=== PATIENT | female | born 1985 | race Caucasian/White ===

== ENCOUNTER 2023-07-31 08:47 | Emergency (ER) | payer SELFPAY ==
[2023-07-31 08:52] VITALS: BP 121/97; PULSE 100; RESP 18; TEMP 36.4; O2SAT 100; BMI 28.8
--- NOTE | 2023-07-31 09:14 | ED_ITS ---
HPI - Skin/Abscess/Foreign Bdy General Chief complaint: Skin/Abscess/Foreign Body Stated complaint: rectal pain Time Seen by Provider: 07/31/23 08:51 Source: patient Mode of arrival: walk-in Limitations: no limitations History of Present Illness HPI narrative: [age] year old female presents for rash and itching between her buttock cheeks. She's had this for several days and there is been some clear drainage. She hasn't had any unusual activity and hasn't been sweating anymore than typical. No vaginal drainage and no bleeding from this area. She has not been constipated. She hasn't felt any lumps. Related Data Previous Rx's Medication Instructions Recorded clotrimazole-betamethasone 1 1 applic topical BID #45 grams 07/31/23 %-0.05 % topical cream Allergies Allergy/AdvReac Type Severity Reaction Status Date / Time No Known Drug Allergies Allergy Verified 07/31/23 08:52 Review of Systems ROS Narrative A ten point review of systems is negative except as noted above. PFSH PFSH Social History Smoking status: Never smoker Exam Narrative Exam Narrative: Nurses note and vital signs reviewed and patient is not hypoxic. General: The patient appears well and in no apparent distress. Patient is resting comfortably on cart. Skin: Warm, dry, no pallor noted. There is erythema on the medial buttock area. There is no hemorrhoid or abscess. There is no open area. It extends to the perineum but not in the area lateral to the vagina. Head: Normocephalic, atraumatic Eye: Normal conjunctiva, no drainage, EOMI. PERRL Ears, Nose, Mouth, and Throat: oral mucosa is moist. Nares patent. Mouth without vesicles. Cardiovascular: Regular Rate and Rhythm Respiratory: Patient is in no distress, no accessory muscle use, lungs are clear to auscultation, no wheezing, rales or rhonchi Back: non-tender GI: soft and nontender Musculoskeletal: The patient has no evidence of calf tenderness, no pitting edema, symmetrical pulses noted bilaterally Neurological: A&O, normal speech Psychiatric: Cooperative Constitutional Vital Signs, click to edit/add: Last Vital Signs Temp 97.5 F L 07/31/23 08:52 Pulse 100 H 07/31/23 08:52 Resp 18 01/21/24 08:52 BP 121/97 H 07/31/23 08:52 Pulse Ox 100 07/31/23 08:52 O2 Del Method Room Air 07/31/23 08:52 Course Vital Signs Vital signs: Vital Signs Temperature 97.5 F L 07/31/23 08:52 Pulse Rate 100 H 07/31/23 08:52 Respiratory Rate 18 07/31/23 08:52 Blood Pressure 121/97 H 07/31/23 08:52 Pulse Oximetry 100 07/31/23 08:52 Oxygen Delivery Method Room Air 07/31/23 08:52 Temperature 97.5 F L 07/31/23 08:52 Pulse Rate 100 H 07/31/23 08:52 Respiratory Rate 18 07/31/23 08:52 Blood Pressure 121/97 H 07/31/23 08:52 Pulse Oximetry 100 07/31/23 08:52 Oxygen Delivery Method Room Air 07/31/23 08:52 MDM - Skin/Abscess/Foreign Bdy MDM Narrative Medical decision making narrative: my clinical impressions that she has fungal dermatitis. Treatment diagnosis and follow-up were discussed with the patient. I do not suspect cellulitis and there is no abscess. Differential Diagnosis Differential diagnosis: Likely abscess of skin or subcutaneous tissue, d ermatophytosis and cellulitis Discharge Plan Discharge Chief Complaint: Skin/Abscess/Foreign Body Clinical Impression: Fungal dermatitis Patient Disposition: Home, Self-Care Time of Disposition Decision: 09:08 Condition: Good Mode of Transportation: Private Vehicle Prescriptions / Home Meds: New clotrimazole-betamethasone 1-0.05 % cream 1 applic topical BID Qty: 45 0RF Instructions: Skin Yeast Infection (ED) Stand Alone Forms: Portal Instructions Referrals: Physician,Non-Staff, MD [Primary Care Provider] - 1 week
== END 2023-07-31 09:17 | disposition home or self-care (01) ==
PROVIDERS: Emergency Provider Emergency Medicine
DX: B36.9 Superficial mycosis, unspecified (principal)
CPT/HCPCS: 99283